=== PATIENT | female | born 1960 | race Caucasian/White ===

== ENCOUNTER 2016-06-30 06:35 | Day surgery (SDC) | payer MEDICARE, MEDICAID ==
[~2016-06-30] VITALS: Ht 167.6 cm; Wt 83.0 kg
[2016-06-30] VITALS (8 sets, daily range): BP systolic 114–141; BP diastolic 62–72; PULSE 49–69; RESP 15–19; O2SAT 94–100
[~2016-06-30 06:35] MED LIST: BUPR-97 PO; LEVO125T6 PO; LISI-571 PO; LISI10TA PO; MULT-1018 PO
[2016-06-30] MEDS ORDERED: fentaNYL-PF 50 mCg/mL 2 mL Inj ONE (06:36)
[2016-06-30] MEDS ORDERED: Propofol 10,000 mCg/mL 20 mL Inj ONE (06:36)
[2016-06-30] MEDS ORDERED: Ondansetron 2 mg/mL 2 mL Inj ONE (06:36)
[2016-06-30] MEDS ORDERED: Dexamethasone 4 mg/mL Inj ONE (06:36)
[2016-06-30] MEDS: Lactated Ringer's 1,000 ML IV SCH ×2 (07:30→08:25)
--- NOTE | 2016-06-30 08:25 | PCM.HPANE ---
Patient Data Surgeon Admitting Provider: Attending Provider:Vaughn Schmidt MD Primary Care Physician:Jani Agrawal MD Other Provider:Lambert Sanabria Anesthesia Reason for Visit Right Knee Medial Meniscus Tear Ht/WT & BMI Height (Feet): 5 Height (Inches): 6.00 Weight (Kilograms): 83.000 Body Mass Index 29.00 Allergies Coded Allergies: Contrast Media (Verified Adverse Reaction, Severe, kidney issues, 02/16/16) Past Anesthesia History Anesthesia History: Denies:: Anesthesia Reactions, Fam Anesthesia Reaction, Malignant Hyperthermia Diabetes History Hx Diabetes?: Yes Type of Diabetes: Type II Glycemic Control: Diet Controlled Current Bedside Blood Glucose: 103 MRSA MRSA: No Medications Hypertension Medication: Yes (LISINOPRIL) Home Meds Incl Beta Evy: No Reported Medications Multivitamin (Multi Vitamin Daily)1 Each Tablet1 Each PO DAILY 30 Days Ref 0 06/25/16 Levothyroxine 125 Mcg [id number] Mcg PO DAILY For Thyroid Replacement Ref 0 06/25/16 Lisinopril 10 Mg [id number] Mg PO DAILY 30 Days Ref 0 06/25/16 Lisinopril 5 Mg Tablet5 Mg PO DAILY Ref 0 03/12/14 Discontinued Reported Medications Bupropion ER (Wellbutrin XL)150 Mg Tab.er.55w940 Mg PO DAILY Ref 0 06/25/16 Clobetasol Propionate/Emoll (Clobetasol Emollient 0.05% Crm)15 Gm Cream..g.1 Appl TOP BID 05/28/14 Clobetasol Propionate/Emoll (Clobetasol Emollient 0.05% Crm)15 Gm Cream..g.1 Appl TOP BID 03/12/14 Levothyroxine 112 Mcg [id number] Mcg PO DAILY For Thyroid Replacement Ref 0 03/12/14 [poly iron] No Conflict [id number] Mg PO DAILY 05/15/13 Multivitamin (Daily Value)1 Each Tablet1 Each PO DAILYWM 07/14/12 History History of ENT Problems?: Yes HEENT History: Positive for:: Dysphagia Hx of Heart Problems?: Yes Cardiovascular History: Positive for:: Chest Pain (01/2016-DEEMED NON-CARDIAC) Edema (legs) Hypertension Denies:: Heart Murmur Other Cardiac History: HX IRON-DEFIENCY ANEMIA Hx of Respiratory Problem?: Yes Respiratory History: Positive for:: Chest Surgery (S/P RT LOWER LOBECTOMY FOR CA 2011) Dyspnea (INTERMITTANT MACHADO) Denies:: Use of C-PAP Machine (SNORES) Hx Neurologic Problems?: Yes Neurological History: Positive for:: Headaches Hx of GI Problems?: Yes Gastrointestinal History: Positive for:: Gall Bladder Disease (S/P ISABEL) Gastroesphageal Reflux Hx of Problems?: Yes Other Pertinent History: C/OF NOCTURIA S/P LT NEPHRECTOMY FOR RENAL CELL CA 2008 Female Hx: Denies:: Currently (S/P C/S X3,D&C,ENDOMETRIAL BX) Problems with Breasts? Skin History: Positive for:: History Skin Disorders? (PRURITIS) Denies:: Pressure Ulcers Hx Musculoskeletal Problems?: Yes Musculoskeletal History: Positive for:: Musculoskeletal Trauma (C/OF RT SHOULDER PAIN RT KNEE MEDIAL MENISCUS TEAR=CURRENT PROBLEM) Hx of Psycho/Social Problems?: Yes Psycho Social History: Positive for:: Anxiety (STRESS) Hx Depression Hx Surgeries?: Yes (LT NEPHRECTOMY,RT LOWER LOBECTOMY,C/S X3,HYSTEROSCOPY/D&C, ENDOMETRIAL BX,CH) Hx Any Other Health Problems?: Yes Other History: Positive for:: Cancer (LT KIDNEY,RT LUNG) Hospitalization Thyroid Disease Denies:: Endocrine Disease (C/OF HEAT & COLD INTOLERANCE) History Blood Transfusions: Positive for:: Blood Transfusions Denies:: Blood Transfuse Reaction Hx Diabetes: YesBedside Blood Glucose: 103 Hx Alcohol Use: NoHx Substance Use: No Smoking Status: Unknown if Ever Smoker Have You Smoked inLast 12 mo: No Stop/Bang S-Snoring: Do You Snore Loudly: Yes T-Tired: feel tired, fatigued: Yes O-Obsered: Observed not breath: No P-Blood Pressure: treated: Yes B- Body Mass Index > 35 kg/m2: No A- Age over 50: Yes N- Neck Large Circumference: No G- Gender Male: No PALAK Total Score: 4 PALAK Risk Assessment: High Risk, =/>3 Yes PALAK Category 2: Yes Risk Assessment Category Category 1A: Patient has history of documented sleep apnea, and HAS NOT received any narcotic, sedative or anesthesia administration during this stay. Category 1B: Patient has history of documented sleep apnea, and HAS received any narcotic , sedative or anesthesia administration during this stay Category 2: Patient has SUSPECTED Obstructive Sleep Apnea, and HAS received any narcotic , sedative or anesthesia administration during this stay. Category 3: Patient has SUSPECTED Obstructive Sleep Apnea and HAS NOT received narcotic, sedative or anesthesia administration during this stay. Category 4: Outpatient in Procedural Areas with known sleep apnea or who screen positive for High Risk via the STOP/BANG questionnaire. Exam Exam Vital Signs Vital Signs Date Time Temp Pulse Resp B/P Pulse Ox O2 Delivery O2 Flow Rate FiO2 06/30/16 06:57 36.0 63 19 118/64 94 Room Air General Appearance: Alert, Oriented X3, Cooperative, No Acute Distress HEENT/AIRWAY: MP 2 Lungs: Clear to Auscultation, Normal Air Movement Heart: Exam Unremarkable, Regular Rate/Rhythm, No Murmurs/Rubs/Gallops Meds/Labs/Diagnostics Admission Meds Current Medications Lactated Ringer's (Lr) 1,000 ml @ 120 mls/hr [id number] IV Last administered on t 07:30; Start 06/30/16 at 05:00; Stop 06/30/16 at 13:19 Bedside Blood Glucose: 103 Plan Impression Patient chart reviewed, patient interviewed and anesthestic plan with risks, benefits, and alternatives discussed, and informed consent obtained. NPO Status: mn ASA Physical Status: ASA2 Mod Systemic Disease Anesthetic Plan: GA Bene/Risks/Altern/Consents: Yes HP Complete Prior to Induction: Yes Blue Gross MD Jun 30, 2016 08:25
[2016-06-30] MEDS ORDERED: Lactated Ringer's 1,000 ML IV SCH (08:48)
[2016-06-30] MEDS ORDERED: Lactated Ringer's 500 ML IV PRN (08:48)
[2016-06-30] MEDS ORDERED: EPHEDrine Sulfate 50 mg/mL Inj IVPUSH PRN (08:50)
[2016-06-30] MEDS ORDERED: Ondansetron 2 mg/mL 2 mL Inj IVPUSH PRN (08:50)
[2016-06-30] MEDS ORDERED: Labetalol 5 mg/mL 4 mL Inj IV PRN (08:50)
[2016-06-30] MEDS ORDERED: hydrALAZINE 20 mg/mL Inj IVPUSH PRN (08:50)
[2016-06-30] MEDS ORDERED: Phenylephrine 10,000 mCg/mL Inj IVPUSH PRN (08:50)
[2016-06-30] MEDS ORDERED: HYDROmorphone 1 mg/mL Inj IVPUSH PRN (08:50)
[2016-06-30] MEDS ORDERED: MetoCLOpramide 5 mg/mL 2 mL Inj IVPUSH PRN (08:50)
[2016-06-30] MEDS ORDERED: Dexamethasone 4 mg/mL Inj IVPUSH PRN (08:50)
[2016-06-30] MEDS ORDERED: Atropine 0.4 mg/mL Inj IVPUSH PRN (08:50)
[2016-06-30] MEDS ORDERED: fentaNYL-PF 50 mCg/mL 2 mL Inj IVPUSH PRN (08:50)
[2016-06-30] MEDS ORDERED: MethylprednisoLONE Depot 40 mg/mL Inj ARTICULAR ONE (08:57)
[2016-06-30] MEDS ORDERED: Lidocaine 2%-Epi 1:100,000 20 mL Inj INFILTRATE ONE (08:57)
[2016-06-30] MEDS ORDERED: HYDROcodone-APAP 5-325 mg Tablet PO PRN (09:30)
--- NOTE | 2016-06-30 09:32 | PCM.ORTHOB ---
Immediate Operative Note Date of Service: Jun 30, 2016 Pre Operative Diagnosis Right knee medial meniscal tear Post Operative Diagnosis Same Procedure Right knee arthroscopic partial medial meniscectomy Surgeon Surgeon: Vaughn Schmidt MD Assistants: None Findings Right knee medial compartment degenerative and incarcerated tear of the medial meniscus extending from the body through the junction of the body and posterior horn. Early degenerative changes on both sides of the joint with diffuse grade 2 chondromalacia affecting the tibial weightbearing articular surface. Diffuse grade 1-2 chondromalacia affecting the majority of the weightbearing surface of the medial femoral condyle. The anterior cruciate ligament had minor degenerative changes and fraying but was otherwise intact and stable to probing. The lateral compartment was better preserved with an intact and stable lateral meniscus. Diffuse grade 1-2 chondromalacia affecting the majority of the weightbearing surface on the tibial side. Diffuse grade 1 chondromalacia affecting the weightbearing surface of lateral femoral condyle. No loose bodies were noted in the medial or lateral gutters. The patellofemoral compartment was remarkable for diffuse grade 1-2 chondromalacia affecting the central patellar articular surface. Grafts, Implants: None Complications There were no periprocedural complications identified. Condition Stable Anesthetic Administered: GA Drains: None Catheters: None Output, Estimated Blood Loss: 1 Blood Admin during surgery: No Surgical Cast or Splint: None Additional Information Tourniquet time 16 minutes Surgical Specimen Removed: No Surgical Specimen sent to Path: No Post Operative Plan The patient will be discharged from daycare surgery when protocol is met. The patient will allow to weight-bear as tolerated through her right lower extremity beginning postop day #1. The patient should resume her preoperative knee strengthening exercises as soon as possible. The patient will be seen for routine wound check on her after postop day #5. The patient may have her skin sutures were removed on or after postop day #12. Patient should be able to resume light activities of daily living by that point. Vaughn Schmidt MD Jun 30, 2016 09:32
--- NOTE | 2016-06-30 09:37 | PCM.ORTHOP ---
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 Pain suddenly progressed a few months ago and changed in that the patient has been experiencing sharp catching pain on the inside of her right knee with loaded flexion, squatting, turning and twisting activities. There is no history of trauma or change in activities. Preoperative exam of the patient's right knee reveals full and stable right knee range of motion with tenderness along the medial joint line and a positive Caroline test. The patient's knee symptoms have not responded to appropriate exercises, use of anti-inflammatory agents and activity modification. Preoperative MRI of the patient's right knee reveal truncation and medial incarceration of the medial meniscus associated with a degenerative horizontal flap tear of the medial meniscal body. The patient presents for right knee arthroscopic partial medial meniscectomy. Findings Right knee medial compartment degenerative and incarcerated tear of the medial meniscus extending from the body through the junction of the body and posterior horn. Early degenerative changes on both sides of the joint with diffuse grade 2 chondromalacia affecting the tibial weightbearing articular surface. Diffuse grade 1-2 chondromalacia affecting the majority of the weightbearing surface of the medial femoral condyle. The anterior cruciate ligament had minor degenerative changes and fraying but was otherwise intact and stable to probing. The lateral compartment was better preserved with an intact and stable lateral meniscus. Diffuse grade 1-2 chondromalacia affecting the majority of the weightbearing surface on the tibial side. Diffuse grade 1 chondromalacia affecting the weightbearing surface of lateral femoral condyle. No loose bodies were noted in the medial or lateral gutters. The patellofemoral compartment was remarkable for diffuse grade 1-2 chondromalacia affecting the central patellar articular surface. Details of Procedure The patient was brought to the OR and given a general anesthetic. She is placed in supine position and a tourniquet placed high about the right side. The right lower extremity was prepped and draped in usual sterile fashion. The tourniquet was inflated to 275 mmHg. We placed 2 infrapatellar arthroscopic portals, one medial and one lateral for the scope and instruments. We inserted the scope and went directly into the medial compartment after the knee was instilled with lactated Ringer's with epinephrine. We confirmed the presence of an incarcerated and degenerative tear of the medial meniscus running from the artery to the junction of the body and posterior horn. We also found early degenerative changes in both sides of the joint. We used a combination of arthroscopic basket biting forceps and arthroscopic shaver to debride the degenerative medial meniscal tear after incarcerating the torn fragment from where was extruded medially. We then examined the rest of the knee. We found minor fraying and degenerative changes of the anterior cruciate ligament which was otherwise intact and stable to probing. The lateral compartment was reviewed. The lateral meniscus was found to be intact and stable to probing. There are mild or early degenerative changes in the lateral compartment. The medial and lateral gutters were found to be free of loose bodies. Patellofemoral compartment was reviewed and found to have early degenerative changes. We thoroughly irrigated the knee and removed the scope and instruments. We instilled 30 mL of 2% lidocaine with 40 mg of Depo-Medrol. The wounds were closed with interrupted 4-0 nylon sutures. Wounds dressed with Xeroform and dry gauze dressings. The tourniquet was deflated and the patient was taken back to PACU in stable and satisfactory condition. There were no complications. Patient tolerated the procedure well. Grafts, Implants: None Complications There were no periprocedural complications identified. Condition Stable Anesthetic Administered: GA Drains: None Catheters: None Output, Estimated Blood Loss: 1 Blood Admin during surgery: No Surgical Cast or Splint: None Addtional Information Tourniquet time 16 minutes Surgical Specimen Removed: No Specimen sent to Pathology: No Post Operative Plan The patient will be discharged from daycare surgery when protocol is met. The patient will allow to weight-bear as tolerated through her right lower extremity beginning postop day #1. The patient should resume her preoperative knee strengthening exercises as soon as possible. The patient will be seen for routine wound check on her after postop day #5. The patient may have her skin sutures were removed on or after postop day #12. Patient should be able to resume light activities of daily living by that point. copies to: Jani Agrawal MD; Vaughn Schmidt MD, Michael G.E MD Jun 30, 2016 09:37
--- NOTE | 2016-06-30 11:27 | PCM.ANEP1 ---
Post Anesthesia Phase 1 PACU Phase 1 Assessment Date of Service: Jun 30, 2016 Vital Signs Vital Signs Date Time Temp Pulse Resp B/P Pulse Ox O2 Delivery O2 Flow Rate FiO2 06/30/16 10:57 51 16 141/71 100 Room Air 06/30/16 10:10 36.1 49 16 118/63 99 Room Air 06/30/16 10:00 36.1 51 15 114/62 98 Room Air 06/30/16 09:45 55 18 129/64 98 Room Air 06/30/16 09:35 64 16 118/68 97 Room Air 06/30/16 09:30 69 18 126/71 98 Room Air 06/30/16 09:25 36.5 69 19 136/72 98 Room Air 06/30/16 06:57 36.0 63 19 118/64 94 Room Air Anesthetic Administered: GA Level of Alertness: Awake, talking TAYLOR's with Equal Strength: Yes Pain: No Nausea or Vomiting: No Oxygen Delivery: Room Air Lungs: Clear to Auscultation, Normal Air Movement Dermatome Level: Full Sensation Blue Gross MD Jun 30, 2016 11:27
--- NOTE | 2016-06-30 11:42 | PCM.ANEP2 ---
Post Anesthesia Evaluation ASA/CMS Post Anesthesia VS in Patient's Normal Range?: Yes Resp Stable; Airway Patent?: Yes CV Function & Hydration Stable: Yes Mental Status Recovered?: Yes Pain control Satisfactory?: Yes N/V Control Satisfactory?: Yes Blue Gross MD Jun 30, 2016 11:42
== END 2016-06-30 23:59 | disposition home or self-care (01) ==
LOC: SAS 06:35
PROVIDERS: ATTEND Orthopaedic Surgery
DX: M23.221 Derangement of posterior horn of medial meniscus due to old tear or injury, right knee (principal); M22.41 Chondromalacia patellae, right knee; M17.11 Unilateral primary osteoarthritis, right knee; D50.9 Iron deficiency anemia, unspecified; E03.9 Hypothyroidism, unspecified; F40.240 Claustrophobia; Z85.528 Personal history of other malignant neoplasm of kidney; Z85.118 Personal history of other malignant neoplasm of bronchus and lung
CPT/HCPCS: 29881; J0690; J1030; J1100; J1170; J2250; J2405; J3010; J7120